=== PATIENT | male | born 1950 | race Caucasian/White ===

== ENCOUNTER 2022-12-17 20:02 | Emergency (ER) | payer MEDICARE, SELFPAY ==
[2022-12-17] VITALS (51 sets, daily range): BP systolic 159; BP diastolic 74; PULSE 78; RESP 10–25; O2SAT 96–98
[2022-12-17] MEDS: diphenhydrAMINE 50 MG/ML VIAL 25 MG IVP (20:33)
[2022-12-17] MEDS: FAMOTIDINE 20 MG in Normal Saline 100 ML 400 MG IVPB (20:34)
[2022-12-17] MEDS: methylPREDNISolone SUCC 125 MG VIAL IVP (20:34)
--- NOTE | 2022-12-17 22:19 | ED.GENADUL_ITS ---
Discharge Plan Disposition Patient Disposition: Home Discharge Details Clinical Impression: Allergic reaction Primary Care Provider: Meaghan,Local ED Provider: Jenna Christina Home Meds and New Rx's Prescriptions: New prednisone 20 mg tablet 40 mg PO ONCE Qty: 10 0RF famotidine [Pepcid] 20 mg tablet 20 mg PO DAILY Qty: 10 0RF epinephrine 0.3 mg/0.3 mL auto-injector 0.3 ml subcut ONCE Qty: 2 0RF Rx Instructions: as a single dose; may repeat once Continued aspirin 81 mg Capsule 81 mg PO DAILY Discharge Instructions Instructions: General Allergic Reaction (ED) Additional Instructions: Take the prednisone and Pepcid You have an EpiPen, only use it should you have difficulty swallowing or significant swelling to your tongue and lips Continue to take Zyrtec daily Follow-up with your doctor when you return home return earlier should you have new or worsening complaints Medical Decision Making 72-year-old male presents in no acute distress, stable vitals, temp 97.8, airway patent, uvula midline, no swelling appreciated to lips or airway Lungs clear to auscultation alert and oriented x4, given Benadryl, Solu-Medrol, and Pepcid Patient will be observed for an hour, feeling symptomatically improved, discharged home in stable condition with stable vitals, no clinical evidence of anaphylaxis HPI General Date/Time Provider Initiated Documentation: 12/17/22 20:04 . HPI Narrative: This 72-year-old male presents with report of concern for allergy to red dye. He states that he had a merichino winters and now he has swelling to his tongue and lips. He states this is happened before. He denies any difficulty swallowing or shortness of breath. States this happened approximately an hour prior to arrival Related Data Home Medications Medication Instructions Recorded Confirmed aspirin 81 mg capsule 81 mg PO DAILY 12/17/22 12/17/22 epinephrine 0.3 mg/0.3 mL 0.3 ml subcut ONCE #2 ea 12/17/22 injection, auto-injector famotidine 20 mg tablet (Pepcid) 20 mg PO DAILY #10 tabs 12/17/22 prednisone 20 mg tablet 40 mg PO ONCE #10 tabs 12/17/22 Previous Rx's Medication Instructions Recorded epinephrine 0.3 mg/0.3 mL 0.3 ml subcut ONCE #2 ea 12/17/22 injection, auto-injector famotidine 20 mg tablet (Pepcid) 20 mg PO DAILY #10 tabs 12/17/22 prednisone 20 mg tablet 40 mg PO ONCE #10 tabs 12/17/22 Allergies Allergy/AdvReac Type Severity Reaction Status Date / Time red dye Allergy Unverified 12/17/22 20:14 General Stated Complaint: Allergic KOFFI: 3 PFSH All Active Problems (Updated 12/17/22 @ 21:22 by MELISSA Osman) Allergic reaction (Acute) Social History Smoking/Tobacco Use Status: Never Smoking risk assessment performed?: Yes Substance use type: does not use Housing: house Course Vital Signs Vital signs: Vital Signs Pulse 78 12/17/22 20:07 Respiratory Rate 18 12/17/22 20:07 Blood Pressure 159/74 H 12/17/22 20:07 Pulse Oximetry 97 12/17/22 20:07 Pulse 78 12/17/22 20:07 Respiratory Rate 11 L 12/17/22 21:28 Respiratory Effort Normal 12/17/22 20:10 Respiratory Pattern Normal 12/17/22 20:10 Blood Pressure 159/74 H 12/17/22 20:07 Blood Pressure Position Sitting 12/17/22 20:07 Pulse Oximetry 96 12/17/22 21:29 Oxygen Delivery Method Room Air 12/17/22 20:07 Oxygen Flow Rate 0 12/17/22 20:07 Pain Level 0 12/17/22 21:31
== END 2022-12-17 21:32 | disposition home or self-care (01) ==
LOC: ER 21:34
PROVIDERS: Emergency Provider Physician Assistant
DX: T78.1XXA Other adverse food reactions, not elsewhere classified, initial encounter (principal); R22.0 Localized swelling, mass and lump, head; Z91.02 Food additives allergy status; X58.XXXA Exposure to other specified factors, initial encounter
CPT/HCPCS: 96365; 96375; 99283; J1200; J2930